=== PATIENT | female | born 1995 | race Caucasian/White ===

== ENCOUNTER 2024-04-25 22:18 | Emergency (ER) | payer OTHER, SELFPAY ==
[2024-04-25 22:20] VITALS: BP 137/98
[2024-04-26 02:18] VITALS: BMI 32.3
[2024-04-26 02:19] VITALS: BP 126/79
--- NOTE | 2024-04-26 02:20 | EDRN ---
Around 1400 pt noted a marcos on her L volar wrist and she scratched it. Pt says the area was clear, raised then became a hive. Around 1599, pt took 50mg PO bendaryl which helped the itching. Around 1999, pt noted rash was spreading so she took an
additional 50mg PO benadryl and came to the ED. Pt notes pain on wrists, feels tight and swollen. itching has improved. No known cause for reaction. Pt uses hypoallergenic products. Pt used a new perfume today- sprayed on her body while she was
clothed, and washed her daughter's hair with a new shampoo/conditioner. No sob. Lips were swollen earlier but that has gone away. No trouble swallowing.
--- NOTE | 2024-04-26 02:32 | ED.GENMED ---
History of Present Illness
General
Chief Complaint: Allergic Reaction
Source: patient
Exam Limitations: none
Time Seen by Provider: 04/26/24 02:10
History of Present Illness
History of Present Illness:
This is a 29 year old female that comes in with c/o allergic reaction. States that she started with an itch on the left wrist around 2pm and then she started with hives. State that she did spray a new perfume on her clothing today but did not spray
it on her skin. States that she also used a new shampoo and conditioner on her daughter when she was in the tub. States that it does itch. Denies any fever, chills, chest pain, SOB, abd pain, nausea, vomiting, diarrhea, headache, dizziness, urinary
burning.
Past History
Past History
ED Past Medical History: None; Negative Asthma, HTN, Hypercholesterolemia or NIDDM
ED Past Surgical History: None
Social History
Tobacco: Non-smoker
Alcohol: Occasional
Personal:
Living: with family
Review of Systems
Review of Systems
All Other Systems: ROS reviewed and negative except as documented in HPI and ROS
Constitutional: Reports no symptoms; Denies fever or chills
EENT: Reports no symptoms
Respiratory: Reports no symptoms; Denies cough or trouble breathing
Cardiac: Reports no symptoms; Denies chest pain
ABD/GI: Reports no symptoms; Denies abdominal pain, nausea, vomiting or diarrhea
: Reports no symptoms; Denies dysuria, frequency or urgency
Musculoskeletal: Reports no symptoms
Skin: Reports rash (Hives all over her body)
Neurological: Reports no symptoms; Denies dizzy or headache
Psychiatric: Reports no symptoms
Phy Exam
General Physical Exam
General Presentation: well appearing and no apparent distress
General age: appears stated age
General Skin: warm and dry
General Habitus: normal
General Hydration: appears well hydrated
ENT Exam
ENT Exam: TM's normal, pharynx normal and neck supple
Eye Exam
Eye Exam: EOMI
Cardiovascular Exam
Cardiovascular Exam: regular rate/rhythm, no edema, no murmur and normal peripheral pulses
Pulmonary Exam
Pulmonary Exam: lungs clear, no respiratory distress, no rales, chest non tender, no crackles, no rhonchi, no wheezing and no cough
Gastrointestinal Exam
Gastrointestinal Exam: normal bowel sounds, non tender, soft, no organomegaly, no pulsatile mass and non distended
Musculoskeletal Exam
Musculoskeletal Exam: full ROM and no edema
Skin Exam
Skin Exam: normal color, warm/dry, no petechia and other (Hives noted over the trunk, arms and legs, lightly noted on the forehead and cheeks. )
Psychiatric Exam
Psychiatric Exam: normal mood/affect
Course
Orders/Labs/Results
Orders:
Orders
04/26/24 02:31
Dexamethasone Sod Phosphate [Decadron] 20 mg IV NOW STA
Diphenhydramine [Benadryl] 25 mg IV NOW STA
Famotidine [Pepcid] 20 mg IV NOW STA
Vital Signs
Initial and Last Documented VS:
Initial Vital Signs
Temp Pulse Resp BP Pulse Ox
97.9 F 86 19 137/98 96
04/25/24 22:20 04/25/24 22:20 04/25/24 22:20 04/25/24 22:20 04/25/24 22:20
Last Documented Vital Signs
Temp Pulse Resp BP Pulse Ox
97.9 F 95 16 126/79 100
04/25/24 22:20 04/26/24 02:19 04/26/24 02:19 04/26/24 02:19 04/26/24 02:19
MDM/Problems Addressed
Differential Diagnosis Includes:
Hives. Allergic reation
MDM/Problems Addressed:
This is a 29 year old female that comes in with c/o hives that started at 2pm. Denies any new soaps, lotions or detergents.
Will give Decadron, Pepcid and Benadryl and then Recheck.
Back into see patient. Patient continues with hives. Will place patient on a steroid for the next 5 days. Patient to take Pepcid 20mg daily and use Benadryl 50mg every 8 hours for the itching. Follow up with the family doctor. Return with any
concerns
Chronic conditions affecting care:
NA
Acute Exacerbation and/or Progression of Chronic Illness:
NA
*Pulse Oximetry
Patient hypoxic: no
*EKG
Interpreted by ED Provider?: NA
Rate: EKG- N/A
*Chief Of Surgery Interpretation
Rate: Chief Of Surgery- N/A
*Critical Care Note
Total Time (30-74mins, 75-104mins- exclusive of procedures): Not Applicable
ED Attending Note
-
Portions of this chart may have been created with voice recognition software.� Occasional wrong word or��sound alike� substitutions may have occurred due to the inherent limitations of voice recognition software.
Discharge Plan
Departure
Patient Disposition: Home (Routine Discharge)
Date of Disposition: 04/26/24
Time of Disposition: 03:28
Patient with high blood pressure during this ER visit?: No
Condition: Good
Covid-19: Not Applicable
Discharge Problem:
Full body hives, Allergic reaction
Instructions: Hives (DC), Allergic reaction - ED discharge instructions
Prescriptions:
New
prednisone 20 mg tablet
40 mg PO DAILY Qty: 10 0RF
famotidine [Pepcid] 20 mg tablet
20 mg PO DAILY Qty: 5 0RF
Activity Restrictions/Additional Instructions:
As discussed, unsure what has cause your hives. Please increase your water intake to 8-8oz glasses daily. You have had 2 prescription sent to your pharmacy. The first is for a steroid to take for the next 5 days. The second is for Pepcid that will
help decrease the histamine release. Follow up with the family doctor for recheck. IF YOU HAVE ANY SHORTNESS OF BREATH, OR YOU HAVE ANY OTHER CONCERNS PLEASE RETURN TO THE EMERGENCY ROOM
Interventions
Interventions:
*Risk Screen - Suicide Last Done: 04/25/24 22:20
*General Assessment Last Done: 04/25/24 22:20
*Neglect/Abuse Screening Last Done: 04/25/24 22:20
*ED COVID-19 Vaccine History Last Done: 04/26/24 02:17
ED- Pulmonary Assessment Last Done: 04/26/24 02:28
ED-Skin Assessment Last Done: 04/26/24 02:28
Discharge Date and Time
Print Language: CROATIAN
[2024-04-26] MEDS: BENADRYL 25 MG IV (02:47)
[2024-04-26] MEDS: PEPCID 20 MG IV (02:51)
[2024-04-26] MEDS: DECADRON 20 MG IV (02:54)
== END 2024-04-26 03:49 | disposition home or self-care (01) ==
LOC: EMR 22:18
PROVIDERS: EMERGENCY PHYSICIAN Student in an Organized Health Care Education/Training Program
DX: T78.40XA Allergy, unspecified, initial encounter (principal); L23.9 Allergic contact dermatitis, unspecified cause; L29.9 Pruritus, unspecified
CPT/HCPCS: 99284; 96374; 96375 ×2